=== PATIENT | female | born 1950 | race African-American/Black ===

== ENCOUNTER 2020-12-05 17:36 | Emergency (ER) | payer OTHER ==
[~2020-12-05 17:36] MED LIST: BREO ELLIPTA 11 EACH INH; CERTAGEN1 EACH PO; FLEXERIL10 MG PO; HCTZ25 MG PO; LOPRESSOR50 MG PO; NORVASC2.5 MG PO; NORVASC5 MG PO; OS-CAL500 MG PO; PERCOCET 7.5/321 TAB PO; REMERON30 MG PO; VENTOLIN HFA IN18 GM INH; VITAMIN D35000 UNIT PO; ZYRTEC10 M3 PO
[2020-12-05 19:15] LABS: BASOPHIL 0.6 % (0-2); EOSINOPHIL 1.9 % (0-7); HCT 45.8 % (37.0-47.0); HGB 14.7 g/dl (12.5-16.0); LYMPHOCYTE 29.7 % (15-48); MCH 28.4 pg (25.0-31.0); MCHC 32.1 g/dL (32.0-36.0); MCV 88.4 fL (78.0-100.0); MONOCYTE 9.4 % (0-12); MPV 10.7 fL (6.0-9.5); NRBC 0; PLT 328 K/uL (150-400); RBC 5.18 M/uL (4.20-5.40); RDW 16.7 % (11.5-14.0); WBC 10.3 K/uL (4.0-10.5)
[2020-12-05 19:32] LABS: BUN/CREAT RATIO (CALC) 14.4 RATIO; CREATININE 0.97 mg/dL (0.51-0.95); POTASSIUM 4.4 mmol/L (3.5-5.1)
== END 2020-12-05 20:51 | disposition home or self-care (01) ==
LOC: FER 17:36
PROVIDERS: Nurse Practitioner Family
DX: I10 Essential (primary) hypertension (principal); J44.9 Chronic obstructive pulmonary disease, unspecified; Z88.2 Allergy status to sulfonamides; Z88.6 Allergy status to analgesic agent
CPT/HCPCS: 36415; 80048; 85025; 99284

== ENCOUNTER 2021-01-19 10:38 | Emergency (ER) | payer OTHER ==
[2021-01-19 11:51] LABS: BASOPHIL 0.9 % (0-2); EOSINOPHIL 1.6 % (0-7); HCT 49.8 % (37.0-47.0); HGB 15.6 g/dl (12.5-16.0); LYMPHOCYTE 25.5 % (15-48); MCH 27.7 pg (25.0-31.0); MCHC 31.3 g/dL (32.0-36.0); MCV 88.3 fL (78.0-100.0); MONOCYTE 13.2 % (0-12); MPV 11.3 fL (6.0-9.5); NEUTROPHIL 58.1 % (41-80); NRBC 0; PLT 325 K/uL (150-400); RBC 5.64 M/uL (4.20-5.40); RDW 17.9 % (11.5-14.0); WBC 8.9 K/uL (4.0-10.5)
[2021-01-19 11:55] LABS: ALBUMIN 3.9 g/dL (3.4-5.0); BILIRUBIN - TOTAL 0.5 mg/dL (0.2-1.0); BUN/CREAT RATIO (CALC) 14.8 RATIO; CREATININE 0.88 mg/dL (0.51-0.95); GLOBULIN (CALCULATION) 4.3 g/dL; INR 0.99 (0.9-1.2); PROTHROMBIN TIME 12.5 SECONDS (11.8-13.4); PTT 24.6 SECONDS (24.4-34.7); TOTAL PROTEIN 8.2 g/dL (6.4-8.2)
[2021-01-19 12:29] LABS: CORONAVIRUS 2019 SARS-COV-2 NEGATIVE (NEGATIVE); INFLUENZA A NAA NEGATIVE (NEGATIVE)
[2021-01-19] MEDS ORDERED: MEDROL 4MG DOSEP4 MG PO (13:05)
== END 2021-01-19 13:15 | disposition left against medical advice (07) ==
LOC: FER 10:38
PROVIDERS: Emergency Medicine
DX: R09.02 Hypoxemia (principal); I10 Essential (primary) hypertension; F17.200 Nicotine dependence, unspecified, uncomplicated; Z88.2 Allergy status to sulfonamides; Z88.6 Allergy status to analgesic agent; Z20.822 Contact with and (suspected) exposure to COVID-19
CPT/HCPCS: 36415; 36600; 71045; 80053; 82803; 84484; 85025; 85379; 85610; 85730; 93005; 94640; J1885; U0002

== ENCOUNTER → 2022-02-08 | Day surgery (SDC) | payer MEDICARE ==
[~2022-02-08] VITALS: Ht 162.6 cm; Wt 75.9 kg
[~2022-02-08] MED LIST changes: +LYRICA 50MG CAP50 MG PO; +MEDROL 4MG DOSEP4 MG PO
== END | disposition home or self-care (01) ==
LOC: FAS 06:34
DX: R93.3 Abnormal findings on diagnostic imaging of other parts of digestive tract (principal); Z88.2 Allergy status to sulfonamides; Z88.8 Allergy status to other drugs, medicaments and biological substances
CPT/HCPCS: J2704; J7120